=== PATIENT | female | born 1985 | race Caucasian/White ===

== ENCOUNTER 2017-05-30 20:44 | Emergency (ER) | payer SELFPAY ==
[~2017-05-30] VITALS: Ht 152.4 cm; Wt 51.6 kg
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
[2017-05-30] MEDS ORDERED: iron (21:32)
--- NOTE | 2017-05-30 21:57 | RAD ---
Exam performed: CT scan of the head and cervical spine without contrast. Date of Service: 05/30/2017 Comparison: None available Clinical History: Left-sided arm pain with transient numbness while driving Technique: Helical acquisitions are obtained from the foramen magnum to the vertex without intravenous administration of contrast. In addition helical acquisitions are obtained through the cervical spine. Sagittal and coronal reformatted images are obtained and reviewed. CT scan head findings: The ventricular system is midline without evidence of dilatation. Normal pagan-white differentiation is maintained. Incidental heel of septum pellucidum There is no extra axial fluid collection, intraparenchymal hemorrhage or mass lesion. The visualized orbits, paranasal sinuses and the mastoid air cells are clear. The calvarium is intact. Impression: 1. No acute intracranial process detected. End Impression. CT cervical spine findings: Normal sagittal alignment is preserved. The vertebral body heights and intravertebral disc spaces are maintained. There is no merrill or retrolisthesis. No prevertebral soft tissue swelling is identified. There are no fractures. No definite lymphadenopathy or masses are seen within the neck. The visualized thyroid and salivary glands appears preserved. Impression: 1. No acute abnormality seen in the CT scan cervical spine. PQRS Compliance Statement: One or more of the following individualized dose reduction techniques were utilized for this examination: 1. Automated exposure control 2. Adjustment of the mA and/or kV according to patient size 3. Use of iterative reconstruction technique Electronically signed by: Gladys Jones MD (05/30/2017 9:55 PM) [facility]
[2017-05-30] MEDS ORDERED: [UNRECOGNIZED DRUG - OTHER] (22:11)
[2017-05-30 22:20] VITALS: BP 112/77
== END 2017-05-30 22:25 | disposition home or self-care (01) ==
LOC: ER 20:44
DX: M54.12 Radiculopathy, cervical region (principal); R20.2 Paresthesia of skin; F17.210 Nicotine dependence, cigarettes, uncomplicated; F12.10 Cannabis abuse, uncomplicated
CPT/HCPCS: 70450; 72125; 81025; 99284-25

== ENCOUNTER 2018-07-05 13:37 | Emergency (ER) | payer OTHER ==
[~2018-07-05] VITALS: Ht 152.4 cm; Wt 51.6 kg
[~2018-07-05 13:37] MED LIST: [UNRECOGNIZED DRUG - OTHER]; iron
[2018-07-05 14:00] VITALS: BP 102/70
--- NOTE | 2018-07-05 15:41 | PHYS DOC ---
Past History Past Medical History: Anemia, Other Additional Past Medical Histor: Spider bite Past Surgical History: Other Additional Past Surgical Histo: Excision of spider bite Smoking: Cigarettes Alcohol Use: None Drug Use: Marijuana Adult General Chief Complaint Chief Complaint: BREAST PROBLEM HPI HPI 33-year-old female presents with right breast mass. Patient noticed a mass in her superior right breast along the rib yesterday. Today it is tender to the touch and the patient is concerned. She has a family history of breast cancer. The patient has never had a mammogram. She has not seen her OB in 6 years. Patient denies any fever, chills, chest pain, shortness of breath. Review of Systems Review of Systems Constitutional: Denies fever or chills [] Eyes: Denies change in visual acuity, redness, or eye pain [] HENT: Denies nasal congestion or sore throat [] Respiratory: Denies cough or shortness of breath [] Cardiovascular: No additional information not addressed in HPI [] GI: Denies abdominal pain, nausea, vomiting, bloody stools or diarrhea [] : Denies dysuria or hematuria [] Musculoskeletal: Denies back pain or joint pain [] Integument: Right breast mass[] Neurologic: Denies headache, focal weakness or sensory changes [] Endocrine: Denies polyuria or polydipsia [] All other systems were reviewed and found to be within normal limits, except as documented in this note. Allergies Allergies Allergies Coded Allergies Type Severity Reaction Last Updated Verified No Known Drug Allergies 05/30/17 No Physical Exam Physical Exam Constitutional: Well developed, well nourished, no acute distress, non-toxic appearance. [] HENT: Normocephalic, atraumatic, bilateral external ears normal, oropharynx moist, no oral exudates, nose normal. [] Eyes: PERRLA, EOMI, conjunctiva normal, no discharge. [] Neck: Normal range of motion, no tenderness, supple, no stridor. [] Cardiovascular:Heart rate regular rhythm, no murmur [] Lungs & Thorax: Bilateral breath sounds clear to auscultation [] Abdomen: Bowel sounds normal, soft, no tenderness, no masses, no pulsatile masses. [] Skin: 1.5 cm mass in the right superior breast. It appears to be associated with the rib. It is firm but not hard. No fluctuance.[] Back: No tenderness, no CVA tenderness. [] Extremities: No tenderness, no cyanosis, no clubbing, ROM intact, no edema. [] Neurologic: Alert and oriented X 3, normal motor function, normal sensory function, no focal deficits noted. [] Psychologic: Affect normal, judgement normal, mood normal. [] EKG EKG [] Radiology/Procedures Radiology/Procedures [] Course & Med Decision Making Course & Med Decision Making Pertinent Labs and Imaging studies reviewed. (See chart for details) The patient does have a mass in the superior right breast. It is not fluctuant. It does not appear to be an abscess. There is no overlying skin changes. I advised patient to follow up with her fire code inspector for a possible mammogram and ultrasound. She will do this first of the week. She is stable for discharge at this time. [] Dragon Disclaimer Dragon Disclaimer This electronic medical record was generated, in whole or in part, using a voice recognition dictation system. Departure Departure: Referrals: CHARLEE GOMEZ MD (PCP) RAINER DOWLING DO Jul 05, 2018 15:41
== END 2018-07-05 15:37 | disposition home or self-care (01) ==
LOC: ER 13:37
DX: N63.10 Unspecified lump in the right breast, unspecified quadrant (principal); F17.210 Nicotine dependence, cigarettes, uncomplicated; Z86.2 Personal history of diseases of the blood and blood-forming organs and certain disorders involving the immune mechanism
CPT/HCPCS: 99281; 99283

== ENCOUNTER → 2018-12-02 | Outpatient (CLI) | payer OTHER ==
--- NOTE | 2018-12-02 15:36 | RAD ---
Indication:Intermittent Pelvic pain 7 years after Essure placement. TECHNIQUE: Grayscale, color Doppler and spectral waveform images of the pelvis obtained. COMPARISON: None FINDINGS: The uterus is anteverted and measures 8.8 x 3.3 x 5.4 cm (longitudinal, AP, transverse). Endometrial stripe measures 7 mm in thickness and is within normal limits. No free pelvic fluid. Right ovary measures 3.1 x 2.3 x 3.3 cm with a dominant follicle or simple cyst measuring 1.8 x 1.4 x 1.7 cm and shows blood flow. Left ovary measures 2.8 x 1.6 x 2.1 cm with multiple follicles, the largest measuring 1.5 x 1.0 x 1.4 cm and shows blood flow. Bilateral essure devices not visualized. IMPRESSION: 1. Bilateral ovaries demonstrate evidence of blood flow with follicles. No acute findings. Electronically signed by: Nghia Mejia DO (12/02/2018 3:32 PM) [id number]
--- NOTE | 2018-12-02 16:48 | RAD ---
CHEST 12/02/2018 INDICATION: Right chest lump. COMPARISON: None available TECHNIQUE: Sonographic evaluation of the chest was performed utilizing grayscale imaging. FINDINGS: On the right chest and the area of concern, there is no suspicious abnormality identified. No cystic or solid mass is identified. No definite rib fracture or productive changes involving the ribs. No skin thickening or subcutis edema. IMPRESSION: No findings to suggest abscess or suspicious cystic or solid mass. Electronically signed by: Alicia Sal MD (12/02/2018 4:44 PM) [facility]
== END | disposition home or self-care (01) ==
LOC: US 13:05
PROVIDERS: ATTEND Family Medicine
DX: R10.2 Pelvic and perineal pain (principal); R22.2 Localized swelling, mass and lump, trunk
CPT/HCPCS: 76604; 76830; 76856

== ENCOUNTER 2020-02-01 18:02 | Emergency (ER) | payer OTHER ==
[~2020-02-01] VITALS: Ht 152.4 cm; Wt 47.3 kg
[2020-02-01 18:05] VITALS: BP 108/75
--- NOTE | 2020-02-01 18:07 | PHYS DOC ---
Past History Past Medical History: Anemia, Other Additional Past Medical Histor: Spider bite Past Surgical History: Other Additional Past Surgical Histo: Excision of spider bite Smoking: Cigarettes Alcohol Use: None Drug Use: Marijuana Adult General Chief Complaint Chief Complaint: ".. I got these spots on both arms... ".. 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 "... HPI HPI Patient is a 34 year old female who presents with above hx and complaints of skin problem. Pt. has area of superficial petechiae to bicep area just above antecubital space bilaterally. 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 Suspect injury from superficial trauma to the skin. No other areas of petechiae. No other areas of excessive bruising. Not on anticoagulants. No history of coagulopathy to family members. Patient has never had excessive bleeding even with deliveries. This neurovascular intact in arms. Capillary refill less than 2 seconds. No history of fever or chills. No history of travel outside cancer area. Normally healthy. Has remote history of anemia and her and spider bite left hip. Pt. follows with Dr. Nadir Siddiqi as primary. Review of Systems Review of Systems Constitutional: Denies fever or chills [] Eyes: Denies change in visual acuity, redness, or eye pain [] HENT: Denies nasal congestion or sore throat [] Respiratory: Denies cough or shortness of breath [] Cardiovascular: No additional information not addressed in HPI [] GI: Denies abdominal pain, nausea, vomiting, bloody stools or diarrhea [] : Denies dysuria or hematuria [] Musculoskeletal: Denies back pain or joint pain [] Integument: Complaints of petechiae upper arms and antecubital space Neurologic: Denies headache, focal weakness or sensory changes [] Endocrine: Denies polyuria or polydipsia [] All other systems were reviewed and found to be within normal limits, except as documented in this note. Family History Family History Noncontributory presentation Current Medications Current Medications See nursing for home meds Allergies Allergies Allergies Coded Allergies Type Severity Reaction Last Updated Verified No Known Drug Allergies 05/30/17 No Physical Exam Physical Exam Constitutional: no acute distress, non-toxic appearance. [] HENT: Normocephalic, atraumatic, bilateral external ears normal, oropharynx moist, no oral exudates, nose normal. [] Eyes: PERRLA, EOMI, conjunctiva normal, no discharge. [] Neck: Normal range of motion, no tenderness, supple, no stridor. [] Cardiovascular:Heart rate regular rhythm, no murmur [] Lungs & Thorax: Bilateral breath sounds equal apex auscultation [] Abdomen: Bowel sounds normal, soft, no tenderness, no masses, no pulsatile masses. [] Skin: Warm, dry, no erythema, no rash. Except Some findings of petechiae and antecubital and upper arms bilaterally- Back: No tenderness, no CVA tenderness. [] Extremities: No tenderness, no cyanosis, no clubbing, ROM intact, no edema. [] Neurologic: Alert and oriented X 3, normal motor function, normal sensory function, no focal deficits noted. [] Psychologic: Affect anxious, judgement normal, mood normal. [] EKG EKG [] Radiology/Procedures Radiology/Procedures [] Course & Med Decision Making Course & Med Decision Making Pertinent Labs and Imaging studies reviewed. (See chart for details) Avoid NSAIDS. Follow up with primary. Return if any concern. Practice good lifting mechanics. Return if any concerns. Impression: 1. Superficial petechiae- secondary to trauma at antecubital and upper arm area - bilateral [] Dragon Disclaimer Dragon Disclaimer This electronic medical record was generated, in whole or in part, using a voice recognition dictation system. Departure Departure: Disposition: 01 HOME/RESIDENCE PRIOR TO ADM Condition: STABLE Referrals: NADIR SIDDIQI MD (PCP) MENDEZ THORNE MD Feb 01, 2020 18:08
== END 2020-02-01 18:25 | disposition home or self-care (01) ==
LOC: ER 18:02
DX: S40.922A Unspecified superficial injury of left upper arm, initial encounter (principal); S40.921A Unspecified superficial injury of right upper arm, initial encounter; R23.3 Spontaneous ecchymoses; X58.XXXA Exposure to other specified factors, initial encounter; Y93.89 Activity, other specified; Y92.89 Other specified places as the place of occurrence of the external cause; Y99.8 Other external cause status
CPT/HCPCS: 99281

== ENCOUNTER 2020-03-23 13:38 | Emergency (ER) | payer OTHER ==
[~2020-03-23] VITALS: Ht 152.4 cm; Wt 44.0 kg
[2020-03-23] MEDS ORDERED: DOXY100C2 PO (14:03)
[2020-03-23] MEDS ORDERED: MUPI22OI2 TP (14:03)
--- NOTE | 2020-03-23 14:03 | PHYS DOC ---
Past History Past Medical History: Anemia, Other Additional Past Medical Histor: Spider bite Past Surgical History: Other Additional Past Surgical Histo: Excision of spider bite Smoking: Cigarettes Alcohol Use: None Drug Use: Marijuana General Adult EDM: Chief Complaint: INSECT BITE HPI: HPI: patient is a pleasant 34-year-old female who presents to the emergency department for evaluation. She noticed what appears to be a small insect type sting on the anterior aspect of her right thigh, yesterday. The area is not ne cessarily painful but does appear to have some surrounding bruising. She states that she has a past history of a brown recluse bite on her left upper thigh, and is concerned that this current lesion might develop into the complications that she had with her other bite, which required extensive surgery. The patient denies any other painful areas, she did not actually see a spider. She denies any numbness or weakness, or any other complaints or concerns at this time. She has not been febrile, denies possibility of . Review of Systems: Review of Systems: Constitutional: Denies fever or chills GI: Denies abdominal pain, nausea, vomiting, bloody stools or diarrhea : Denies dysuria, denies Musculoskeletal: Denies back pain or joint pain Integument: Denies rash, other than as noted in the HPI Heart Score: Risk Factors: Risk Factors: DM, Current or recent (<one month) smoker, HTN, HLP, family history of CAD, obesity. Risk Scores: Score 0 - 3: 2.5% MACE over next 6 weeks - Discharge Home Score 4 - 6: 20.3% MACE over next 6 weeks - Admit for Clinical Observation Score 7 - 10: 72.7% MACE over next 6 weeks - Early Invasive Strategies Allergies: Allergies: Allergies Coded Allergies Type Severity Reaction Last Updated Verified No Known Drug Allergies 05/30/17 No Physical Exam: PE: PHYSICAL EXAM: CONSTITUTIONAL: Well developed, well nourished HEAD: normocephalic, atraumatic EENT: PERRL, EOMI. Conjunctivae normal color, sclerae non-icteric; moist mucous membranes. NECK: Supple, non-tender; no meningismus. LUNGS: Lungs CTA, breathing even and unlabored. Normal air movement. HEART: Regular rate and rhythm, no murmur CHEST: No deformity; non-tender ABDOMEN: The abdomen is soft, and non-tender, no masses or bruits. EXTREM: Normal ROM; no deformity, no calf tenderness. Normal pulses palpable in all extremities. There is no pedal edema. SKIN: No rash; no diaphoresis. There is a small insect bite appearing lesion on the anterior aspect of the right thigh, with mild surrounding bruising. The entire area is approximately the size of a nickel. There is no lymphangitic streaking, warmth, erythema, tenderness, or fluctuance. The remainder the skin is unremarkable. There is a scar in the left upper inguinal region. NEURO: Alert; normal speech and cognition; CN's grossly intact; strength grossly intact without focal deficit. BACK: No CVA TTP. EKG: EKG: [] Radiology/Procedures: Radiology/Procedures: [] Course & Med Decision Making: Course & Med Decision Making I discussed home care plan with the patient, the need for close outpatient follow-up, and return precautions. Dragon Disclaimer: Dragon Disclaimer: This electronic medical record was generated, in whole or in part, using a voice recognition dictation system. Departure Departure: Impression: Primary Impression: Insect bite Disposition: 01 HOME/RESIDENCE PRIOR TO ADM Condition: STABLE Referrals: CHARLEE GOMEZ MD (PCP) Patient Instructions: Brown Recluse Spider Bite, [id number], Insect Bite, Spider Bite Scripts Mupirocin (MUPIROCIN) 22 Gm Oint...g. 1 LATA TP TID for - for 7 Days, #22 GM Prov: CHARLEE HENDRIX MD 03/23/20 Doxycycline Hyclate (DOXYCYCLINE HYCLATE) 100 Mg Capsule 1 CAP PO BID for -, #14 CAP Prov: CHARLEE HENDRIX MD 03/23/20 CHARLEE HENDRIX MD March 23, 2020 14:03
[2020-03-23 14:12] VITALS: BP 103/66
== END 2020-03-23 14:14 | disposition home or self-care (01) ==
LOC: ER 13:38
DX: S70.361A Insect bite (nonvenomous), right thigh, initial encounter (principal); F17.210 Nicotine dependence, cigarettes, uncomplicated; Z86.2 Personal history of diseases of the blood and blood-forming organs and certain disorders involving the immune mechanism; W57.XXXA Bitten or stung by nonvenomous insect and other nonvenomous arthropods, initial encounter; Y93.89 Activity, other specified; Y92.89 Other specified places as the place of occurrence of the external cause; Y99.8 Other external cause status
CPT/HCPCS: 99283

== ENCOUNTER 2020-08-23 13:22 | Emergency (ER) | payer OTHER ==
[~2020-08-23] VITALS: Ht 152.4 cm; Wt 43.0 kg
[~2020-08-23 13:22] MED LIST changes: +DOXY100C2 PO; +MUPI22OI2 TP
[2020-08-23 14:00] VITALS: BP 114/60
[2020-08-23] MEDS ORDERED: DEXAMETHASONE 4 MG TABLET PO ONE (14:00)
--- NOTE | 2020-08-23 14:16 | RAD ---
CHEST AP ONLY History: Cough Comparison: None. Findings: Single view of the chest is submitted. There is no infiltrate, pneumothorax, or effusion. The pericardial cardiac silhouette is within normal limits in size. There is lung hyperexpansion. Impression: 1. No infiltrate is identified by radiograph. There is lung hyperexpansion. Electronically signed by: Reinaldo Garvey MD (08/23/2020 2:13 PM) [id number]
--- NOTE | 2020-08-23 15:42 | PHYS DOC ---
Past History Past Medical History: No Pertinent History Additional Past Medical Histor: Spider bite Past Surgical History: No Surgical History Additional Past Surgical Histo: Excision of spider bite Smoking: Cigarettes Alcohol Use: None Drug Use: Marijuana General Adult EDM: Chief Complaint: SORE THROAT HPI: HPI: Patient is a [age] year old [sex] who presents with [] Review of Systems: Review of Systems: Constitutional: Denies fever or chills Eyes: Denies change in visual acuity HENT: Denies nasal congestion or sore throat Respiratory: Denies cough or shortness of breath Cardiovascular: Denies chest pain or edema GI: Denies abdominal pain, nausea, vomiting, bloody stools or diarrhea : Denies dysuria Musculoskeletal: Denies back pain or joint pain Integument: Denies rash Neurologic: Denies headache, focal weakness or sensory changes Endocrine: Denies polyuria or polydipsia Lymphatic: Denies swollen glands Psychiatric: Denies depression or anxiety Heart Score: Risk Factors: Risk Factors: DM, Current or recent (<one month) smoker, HTN, HLP, family history of CAD, obesity. Risk Scores: Score 0 - 3: 2.5% MACE over next 6 weeks - Discharge Home Score 4 - 6: 20.3% MACE over next 6 weeks - Admit for Clinical Observation Score 7 - 10: 72.7% MACE over next 6 weeks - Early Invasive Strategies Current Medications: Current Meds: Current Medications Medications (Trade) Dose Ordered Sig/Yaneli Start Time Stop Time Status Last Admin Dose Admin Dexamethasone (Decadron) 10 mg 1X ONCE 08/23/20 14:00 08/23/20 14:01 DC 08/23/20 15:23 10 MG Allergies: Allergies: Allergies Coded Allergies Type Severity Reaction Last Updated Verified No Known Drug Allergies 05/30/17 No Physical Exam: PE: Constitutional: Well developed, well nourished, no acute distress, non-toxic appearance. [] HENT: Normocephalic, atraumatic, bilateral external ears normal, oropharynx moist, no oral exudates, nose normal. [] Eyes: PERRLA, EOMI, conjunctiva normal, no discharge. [] Neck: Normal range of motion, no tenderness, supple, no stridor. [] Cardiovascular:Heart rate regular rhythm, no murmur [] Lungs & Thorax: Bilateral breath sounds clear to auscultation [] Abdomen: Bowel sounds normal, soft, no tenderness, no masses, no pulsatile masses. [] Skin: Warm, dry, no erythema, no rash. [] Back: No tenderness, no CVA tenderness. [] Extremities: No tenderness, no cyanosis, no clubbing, ROM intact, no edema. [] Neurologic: Alert and oriented X 3, normal motor function, normal sensory function, no focal deficits noted. [] Psychologic: Affect normal, judgement normal, mood normal. [] Current Patient Data: Labs: Laboratory Tests Test 08/23/20 13:50 Group A Streptococcus Rapid Negative (NEGATIVE) Vital Signs: Vital Signs Date Time Temp Pulse Resp B/P (MAP) Pulse Ox O2 Delivery O2 Flow Rate FiO2 08/23/20 14:00 98.4 64 16 114/60 (78) 99 Room Air EKG: EKG: [] Radiology/Procedures: Radiology/Procedures: [] Course & Med Decision Making: Course & Med Decision Making Pertinent Labs and Imaging studies reviewed. (See chart for details) [] Dragon Disclaimer: Dragon Disclaimer: This electronic medical record was generated, in whole or in part, using a voice recognition dictation system. Departure Departure: Impression: Primary Impression: Suspected 2019 novel coronavirus infection Additional Impression: Pharyngitis Qualified Codes: J02.9 - Acute pharyngitis, unspecified Disposition: 01 DC HOME SELF CARE/HOMELESS Condition: STABLE Referrals: CHARLEE GOMEZ MD (PCP) Patient Instructions: Viral Syndrome, Viral and Bacterial Pharyngitis, [id number] Additional Instructions: You have been tested for or diagnosed with COVID-19. It is an infection caused by a new type of coronavirus. COVID-19 will cause cold-like or mild flu symptoms in most. It can cause more severe symptoms like problems breathing in some. There is no treatment for COVID-19. The body will clear the infection over time. Self-care will help to ease discomfort. Steps to Take: Self-Care Rest as needed. Healthy habits may help you feel better. Steps include: Choose healthy foods including fruits and vegetables. Drink water throughout the day. Get plenty of sleep each night. If you smoke, try to quit. It may ease breathing. Avoid alcohol. Keep Others Healthy The virus can spread to others. Droplets are released every time you sneeze or cough. The droplets can get into the mouth, nose, or eyes of people near you and lead to infection. To lower the chances of spreading COVID-19 to others: Stay at home until your doctor has said it is safe to leave. If you tested positive this will mean staying isolated until both of the following are true: At least 7 days have passed since the start of illness. You are free of fever for at least 72 hours without the use of medicine. During this time: - Avoid public areas, events, or transportation. Do not return to work or school until your doctor has said it is safe to do so. - Call ahead if you need to go to a medical center. Let them know you may have COVID-19. It will help them guide you where to go. They may also ask you to wear a facemask when you come to the office. - If you call for emergency medical services, let them know you may have COVID- 19. While at home: - Try to avoid close contact with others. Stay about 6 feet away. - If possible, spend most of your time in a separate room from others. - Use a face mask if you will be in close contact with others such as sharing a room or vehicle. - Have someone wipe down common surfaces in the home. Use household wastewater treatment plant chemist every day on areas like doorknobs, counters, or sinks. - Cough or sneeze into a tissue. Throw the tissue away right after use. If a tissue is not available, cough or sneeze into your elbow. - Wash your hands often. Wash them after sneezing or coughing. Use soap and water and wash for at least 20 seconds. Alcohol based hand cleaner and presser can be used if soap and water is not available. - Do not prepare food for others. Avoid sharing personal items like forks, spoons, or toothbrushes. - Avoid close contact with pets while you are sick. There is no evidence of the virus passing to pets. This is a safety step until more is known about this virus. Isolation can be frustrating. Social interaction can help. Keep in touch with friends and family through phone and tech options. You can still interact with others in your home, just keep a safe distance of about 6 feet. Follow-up: Your doctors office will check in with you to see if there are any changes in your health. You may be asked to keep track of symptoms to share with them. They will also let you know when you are clear to be in public again. Problems to Look Out For: Contact your doctor if your recovery is not going as you expect. Get emergency care if you have problems such as: - Trouble breathing - Nonstop chest pain or pressure - Changes in awareness, confusion, or problems waking - Lips or face have bluish color - Worsening of symptoms If you think you have an emergency, call for emergency medical services right away. As taken from [facility] NOY BAEZA DO Aug 23, 2020 15:42
--- NOTE | 2020-08-26 08:16 | NUR ---
IP: attempt to notify patient of COVID result. Left call back message.
--- NOTE | 2020-08-26 15:53 | NUR ---
IP: patient notified of COVID result, discussed precautions. There were no questions at this time.
== END 2020-08-23 16:01 | disposition home or self-care (01) ==
LOC: ER 13:22
DX: J02.9 Acute pharyngitis, unspecified (principal); Z20.828 Contact with and (suspected) exposure to other viral communicable diseases; F17.210 Nicotine dependence, cigarettes, uncomplicated
CPT/HCPCS: 71045; 87070; 87880; 99284; C9803; J8540; U0003